=== PATIENT | male | born 1940 | race Caucasian/White ===

== ENCOUNTER 2021-08-08 12:27 | Inpatient (IN) | payer MEDICARE, OTHER ==
[~2021-08-08] VITALS: Ht 175.3 cm; Wt 93.4 kg
[2021-08-08] MEDS ORDERED: ASPIRIN (12:43)
[2021-08-08] MEDS ORDERED: FINASTERIDE (12:43)
[2021-08-08] MEDS ORDERED: FLOMAX (12:43)
[2021-08-08] MEDS ORDERED: CARVEDILOL (12:43)
[2021-08-08] MEDS ORDERED: LISINOPRIL (12:43)
[2021-08-08] MEDS ORDERED: PLAVIX (12:43)
[2021-08-08] MEDS ORDERED: ACETAMINOPHEN 325MG TABLET PO STA (12:54)
[2021-08-08] MEDS ORDERED: PIPERACILLIN/TAZ 3.375G PREMIX 50 ML IV ONE (13:00)
[2021-08-08] MEDS ORDERED: SODIUM CHLORIDE 0.9% 1,000 ML IV ONE (13:00)
[2021-08-08] MEDS ORDERED: VANCOMYCIN 1 G PREMIX 200 ML IV ONE (13:00)
[2021-08-08 14:11] LABS: BASOPHILS % 0.4 % (0.0-2.0); EOSINOPHILS % 0.5 % (0.0-5.0); HEMATOCRIT. 39.5 % (42.0-52.0); HEMOGLOBIN. 12.4 g/dL (14.0-18.0); LYMPHOCYTES % 9.4 % (20.0-50.0); MEAN CORPUSCULAR HEMOGLOBIN 28.3 pg (28.0-32.0); MEAN PLATELET VOLUME 7.5 fl (7.4-10.4); MONOCYTES % 6.4 % (2.0-8.0); NEUTROPHILS % 83.3 % (40.0-76.0); PLATELET 220 x1000/uL (130-400); RED BLOOD CELL COUNT 4.39 mill/uL (4.7-6.1); RED CELL DISTRIBUTION WIDTH 14.7 % (11.6-14.6)
[2021-08-08 14:13] LABS: CHLORIDE 102 mEq/L (98-107)
[2021-08-08 14:18] LABS: INR 1.1; PROTHROMBIN TIME 11.3 sec (9.6-11.0)
[2021-08-08] MEDS ORDERED: SODIUM CHLORIDE 0.9% 1000ML BAG (SEPSIS BOLUS) IV ONE (15:00)
[2021-08-08] MEDS ORDERED: SODIUM CHLORIDE 0.9% 3,000 ML IV SCH (15:15)
[2021-08-08 15:31] LABS: CLARITY URINE CLOUDY (CLEAR); COLOR URINE YELLOW (YELLOW); KETONES URINE NEGATIVE (NEGATIVE); LEUKOCYTE ESTERASE URINE 2+ (NEGATIVE); NITRITE URINE NEGATIVE (NEGATIVE); OCCULT BLOOD URINE 2+ (NEGATIVE); PH URINE 6.5 (4.5-8.0); PROTEIN URINE TRACE (NEGATIVE); SPECIFIC GRAVITY URINE 1.018 (1.005-1.030)
[2021-08-08] MEDS ORDERED: NITROGLYCERIN 0.4MG TABLET SL SL PRN (18:30)
[2021-08-08] MEDS ORDERED: DOCUSATE SODIUM 100MG CAPSULE PO PRN (18:30)
[2021-08-08] MEDS ORDERED: IPRATROPIUM/ALBUTEROL 0.5-3(2.5)MG/3ML NEB NEB PRN (18:30)
[2021-08-08] MEDS ORDERED: ONDANSETRON HCL 4MG/2ML INJ IV PRN (18:30)
[2021-08-08] MEDS ORDERED: GUAIFENESIN 200MG/10ML SUGAR FREE UDC PO PRN (18:30)
[2021-08-08] MEDS ORDERED: ACETAMINOPHEN 325MG TABLET PO PRN ×2 (18:30)
[2021-08-08] MEDS ORDERED: MAGNESIUM/ALUMINUM HYDROXIDE/SIMETHICONE 30ML UDC PO PRN (18:30)
[2021-08-08] MEDS ORDERED: KETOROLAC 15MG/ML VIAL IV PRN (18:30)
[2021-08-08] MEDS ORDERED: CLONIDINE 0.1MG TABLET PO PRN (18:30)
[2021-08-08] MEDS ORDERED: CEFTRIAXONE 1 G PREMIX 50 ML IV SCH (19:00)
[2021-08-08 19:28] LABS: FOLIC ACID (FOLATE) SERUM 12.4 ng/mL (>5.38)
[2021-08-08 19:50] LABS: *BARBITURATES SCREEN URINE NEGATIVE (NEGATIVE); CANNABINOID URINE SCREEN NEGATIVE (NEGATIVE); PHENCYCLIDINE URINE SCREEN NEGATIVE (NEGATIVE)
[2021-08-08 19:51] LABS: *AMPHETAMINES SCREEN URINE NEGATIVE (NEGATIVE); *BENZODIAZEPINES SCREEN URINE NEGATIVE (NEGATIVE); *COCAINE SCREEN URINE NEGATIVE (NEGATIVE); METHADONE URINE SCREEN NEGATIVE (NEGATIVE); OPIATES URINE SCREEN NEGATIVE (NEGATIVE)
[2021-08-08] MEDS ORDERED: LEVOFLOXACIN 500MG PREMIX 100 ML IV SCH (20:00)
[2021-08-08] MEDS: LISINOPRIL 20MG TABLET PO SCH (21:00)
[2021-08-08] MEDS ORDERED: ZOLPIDEM TARTRATE 5MG TABLET PO PRN (21:00)
[2021-08-08] MEDS ORDERED: ENOXAPARIN 40MG/0.4ML SYR SUBCUT SCH (21:00)
[2021-08-08] MEDS: ASCORBIC ACID 500 MG TABLET PO SCH (22:39)
[2021-08-08] MEDS: FAMOTIDINE 20MG TABLET PO SCH (22:39)
[2021-08-08] MEDS: CEFTRIAXONE 1,000 MG in DEXTROSE 5% WATER 50 ML IV SCH (23:14)
[2021-08-08 23:36] LABS: CREATINE KINASE 43 IU/L (39-308)
[2021-08-08 23:37] LABS: CREATINE KINASE MB FRACTION < 1.0 ng/mL (0.5-3.6)
[2021-08-09] VITALS (7 sets, daily range): BP systolic 108–131; BP diastolic 49–70
[2021-08-09] MEDS: LEVOFLOXACIN 500MG PREMIX 100 ML IV SCH ×2 (00:31→23:44)
[2021-08-09] MEDS ORDERED: PRAV10TA35 PO (01:43)
[2021-08-09] MEDS ORDERED: AMLO5TAB88 PO (01:43)
[2021-08-09] MEDS: CARVEDILOL 3.125 MG TABLET PO SCH ×2 (06:06→17:35)
[2021-08-09 07:10] LABS: CHLORIDE 101 mEq/L (98-107)
[2021-08-09 07:18] LABS: PHOSPHORUS 3.3 mg/dL (2.5-4.9)
[2021-08-09 07:20] LABS: CREATINE KINASE 44 IU/L (39-308); CREATINE KINASE MB FRACTION < 1.0 ng/mL (0.5-3.6); HDL CHOLESTEROL 27 mg/dL (40-59); LDL CHOLESTEROL 71 mg/dL (5-100)
[2021-08-09 07:27] LABS: EOSINOPHILS % 0.4 % (0.0-5.0); HEMATOCRIT. 31.5 % (42.0-52.0); HEMOGLOBIN. 11.1 g/dL (14.0-18.0); LYMPHOCYTES % 12.2 % (20.0-50.0); MEAN CORPUSCULAR HEMOGLOBIN 29.3 pg (28.0-32.0); MEAN CORPUSCULAR VOLUME 83.2 fL (80.0-94.0); MEAN PLATELET VOLUME 7.7 fl (7.4-10.4); NEUTROPHILS % 79.4 % (40.0-76.0); PLATELET 227 x1000/uL (130-400); RED BLOOD CELL COUNT 3.79 mill/uL (4.7-6.1); RED CELL DISTRIBUTION WIDTH 14.2 % (11.6-14.6)
[2021-08-09] MEDS: FAMOTIDINE 20MG TABLET PO SCH ×2 (09:52→21:55)
[2021-08-09] MEDS: ASCORBIC ACID 500 MG TABLET PO SCH ×2 (09:52→21:55)
[2021-08-09] MEDS: CLOPIDOGREL 75MG TABLET PO SCH (09:52)
[2021-08-09] MEDS: TAMSULOSIN HCL 0.4MG SR CAPSULE PO SCH (09:53)
[2021-08-09] MEDS: ZINC SULFATE 220 MG ( 50 ) CAPSULE PO SCH (09:54)
[2021-08-09] MEDS: CHOLECALCIFEROL (D3) 1000 UNIT TABLET PO SCH (09:54)
[2021-08-09] MEDS: LISINOPRIL 20MG TABLET PO SCH ×2 (09:54→21:55)
[2021-08-09] MEDS ORDERED: INFLUENZA VACCINE 05/PF 0.5 ML SYRINGE IM ONE (10:00)
[2021-08-09] MEDS ORDERED: DEXTROSE 50% WATER 50ML SYRINGE IV PRN (16:00)
[2021-08-09] MEDS: BLOOD SUGAR DIAGNOSTIC STRIP TEST SCH ×2 (17:37→21:00)
[2021-08-09] MEDS: INSULIN LISPRO 100 UNITS/ML SUBCUT SCH ×2 (17:37→21:00)
[2021-08-09] MEDS: ENOXAPARIN 30MG/0.3ML SYR SUBCUT SCH (21:55)
[2021-08-09] MEDS: CEFTRIAXONE 1,000 MG in DEXTROSE 5% WATER 50 ML IV SCH (22:04)
[2021-08-10] VITALS: BP 118/58
[2021-08-10 04:00] VITALS: BP 115/54
[2021-08-10] MEDS: CARVEDILOL 3.125 MG TABLET PO SCH ×2 (06:14→17:06)
[2021-08-10] MEDS: BLOOD SUGAR DIAGNOSTIC STRIP TEST SCH ×4 (06:34→21:39)
[2021-08-10] MEDS: INSULIN LISPRO 100 UNITS/ML SUBCUT SCH ×4 (07:40→21:00)
[2021-08-10 08:00] VITALS: BP 124/57
[2021-08-10] MEDS: CHOLECALCIFEROL (D3) 1000 UNIT TABLET PO SCH (08:53)
[2021-08-10] MEDS: ENOXAPARIN 30MG/0.3ML SYR SUBCUT SCH ×2 (08:53→21:39)
[2021-08-10] MEDS: LISINOPRIL 20MG TABLET PO SCH ×2 (08:54→21:00)
[2021-08-10] MEDS: ZINC SULFATE 220 MG ( 50 ) CAPSULE PO SCH (08:54)
[2021-08-10] MEDS: CLOPIDOGREL 75MG TABLET PO SCH (08:54)
[2021-08-10] MEDS: TAMSULOSIN HCL 0.4MG SR CAPSULE PO SCH (08:54)
[2021-08-10] MEDS: FAMOTIDINE 20MG TABLET PO SCH ×2 (08:54→21:38)
[2021-08-10] MEDS: ASCORBIC ACID 500 MG TABLET PO SCH ×2 (08:54→21:38)
[2021-08-10 12:00] VITALS: BP 145/65
[2021-08-10 16:00] VITALS: BP 135/61
[2021-08-10 20:00] VITALS: BP 106/47
[2021-08-10] MEDS: CEFTRIAXONE 1,000 MG in DEXTROSE 5% WATER 50 ML IV SCH (23:41)
[2021-08-10] MEDS: LEVOFLOXACIN 500MG PREMIX 100 ML IV SCH (23:42)
[2021-08-11] VITALS: BP 143/89
[2021-08-11 04:00] VITALS: BP 105/51
[2021-08-11] MEDS: CARVEDILOL 3.125 MG TABLET PO SCH ×2 (07:00→18:00)
[2021-08-11] MEDS: BLOOD SUGAR DIAGNOSTIC STRIP TEST SCH ×4 (07:00→21:46)
[2021-08-11] MEDS: INSULIN LISPRO 100 UNITS/ML SUBCUT SCH ×4 (07:03→21:46)
[2021-08-11 08:00] VITALS: BP 109/53
[2021-08-11] MEDS: LISINOPRIL 20MG TABLET PO SCH ×2 (09:00→21:36)
[2021-08-11] MEDS: ZINC SULFATE 220 MG ( 50 ) CAPSULE PO SCH (10:12)
[2021-08-11] MEDS: ENOXAPARIN 30MG/0.3ML SYR SUBCUT SCH ×2 (10:12→21:36)
[2021-08-11] MEDS: FAMOTIDINE 20MG TABLET PO SCH ×2 (10:12→21:36)
[2021-08-11] MEDS: ASCORBIC ACID 500 MG TABLET PO SCH ×2 (10:12→21:36)
[2021-08-11] MEDS: CLOPIDOGREL 75MG TABLET PO SCH (10:12)
[2021-08-11] MEDS: CHOLECALCIFEROL (D3) 1000 UNIT TABLET PO SCH (10:12)
[2021-08-11] MEDS: TAMSULOSIN HCL 0.4MG SR CAPSULE PO SCH (10:13)
[2021-08-11 12:00] VITALS: BP 102/49
[2021-08-11 16:00] VITALS: BP 106/48
[2021-08-11 20:00] VITALS: BP 110/50
[2021-08-11] MEDS: CEFTRIAXONE 1,000 MG in DEXTROSE 5% WATER 50 ML IV SCH (22:05)
[2021-08-12] VITALS: BP 117/51
[2021-08-12 03:34] VITALS: BP 106/43
[2021-08-12] MEDS: CARVEDILOL 3.125 MG TABLET PO SCH ×2 (06:00→18:00)
[2021-08-12] MEDS: BLOOD SUGAR DIAGNOSTIC STRIP TEST SCH ×3 (06:55→18:03)
[2021-08-12 08:00] VITALS: BP 98/44
[2021-08-12] MEDS: LISINOPRIL 20MG TABLET PO SCH (09:00)
[2021-08-12] MEDS: CHOLECALCIFEROL (D3) 1000 UNIT TABLET PO SCH (09:00)
[2021-08-12] MEDS: TAMSULOSIN HCL 0.4MG SR CAPSULE PO SCH (09:00)
[2021-08-12] MEDS: ASCORBIC ACID 500 MG TABLET PO SCH (09:53)
[2021-08-12] MEDS: ENOXAPARIN 30MG/0.3ML SYR SUBCUT SCH (09:53)
[2021-08-12] MEDS: ZINC SULFATE 220 MG ( 50 ) CAPSULE PO SCH (09:58)
[2021-08-12] MEDS: FAMOTIDINE 20MG TABLET PO SCH (09:58)
[2021-08-12] MEDS: CLOPIDOGREL 75MG TABLET PO SCH (09:58)
[2021-08-12 12:00] VITALS: BP 117/52
[2021-08-12] MEDS: INSULIN LISPRO 100 UNITS/ML SUBCUT SCH ×2 (12:40→17:40)
[2021-08-12 15:49] VITALS: BP 22/117
[2021-08-12 16:00] VITALS: BP 109/56
== END 2021-08-12 20:00 | DRG 871 ==
LOC: ER 12:27 → EDBEDREQ 13:00 → 8WST 17:06 → EDBEDREQSVC 17:44 → EDBEDREQ 17:44 → ENRESERV 19:39
PROVIDERS: ADMIT Internal Medicine; ATTEND Internal Medicine
DX: A41.9 Sepsis, unspecified organism (principal); G92.8 Other toxic encephalopathy; N39.0 Urinary tract infection, site not specified; E87.1 Hypo-osmolality and hyponatremia; E44.0 Moderate protein-calorie malnutrition; Z86.73 Personal history of transient ischemic attack (TIA), and cerebral infarction without residual deficits; N40.0 Benign prostatic hyperplasia without lower urinary tract symptoms; D63.8 Anemia in other chronic diseases classified elsewhere; I50.9 Heart failure, unspecified; E11.65 Type 2 diabetes mellitus with hyperglycemia; E78.00 Pure hypercholesterolemia, unspecified; R65.20 Severe sepsis without septic shock; I11.0 Hypertensive heart disease with heart failure; Z78.1 Physical restraint status; Z79.02 Long term (current) use of antithrombotics/antiplatelets; Z79.899 Other long term (current) drug therapy; Z68.30 Body mass index [BMI] 30.0-30.9, adult
CPT/HCPCS: 36415; 71045; 80053; 80061; 80305; 81003; 82550; 82553; 82607; 82746; 82962; 83036; 83540; 83550; 83605; 83735; 84100; 84145; 84443; 84484; 85025; 87077; 87186; 93005; 93306; 93970; 97162; 97166; 99291; J0696; J1650; J1815; J1956; J2543; J3370; J7030; J7040; J7060